=== PATIENT | female | born 2000 | race Caucasian/White ===

== ENCOUNTER 2023-01-14 12:08 | Emergency (ER) | payer MEDICAID, OTHER ==
[~2023-01-14] VITALS: Ht 170.2 cm; Wt 55.0 kg
[2023-01-14] MEDS ORDERED: TETANUS, DIPHTHERIA, PERTUSSIS VAC/PF 0.5ML (>10YR OLD) IM ONE (12:30)
[2023-01-14] MEDS ORDERED: LEVETIRACETAM 1000MG PREMIX 100 ML IV ONE (13:15)
[2023-01-14 13:29] LABS: BASOPHILS % 0.3 % (0.0-2.0); EOSINOPHILS % 0.4 % (0.0-5.0); HEMATOCRIT. 35.2 % (36.0-48.0); HEMOGLOBIN. 12.4 g/dL (12.0-16.0); LYMPHOCYTES % 12.4 % (20.0-50.0); MEAN CORPUSCULAR HEMOGLOBIN 33.5 pg (28.0-32.0); MEAN CORPUSCULAR VOLUME 95.5 fL (81.0-99.0); MEAN PLATELET VOLUME 10.1 fl (7.4-10.4); MONOCYTES % 6.3 % (2.0-8.0); NEUTROPHILS % 80.6 % (40.0-76.0); PLATELET 239 x1000/uL (130-400); RED BLOOD CELL COUNT 3.69 mill/uL (4.2-5.4); RED CELL DISTRIBUTION WIDTH 13.4 % (11.6-14.6)
[2023-01-14 13:40] LABS: CHLORIDE 108 mEq/L (98-107)
[2023-01-14 13:47] LABS: ETHANOL BLOOD < 10 mg/dL
[2023-01-14 13:49] LABS: HCG SCREEN POSITIVE
[2023-01-14 16:24] LABS: CLARITY URINE CLOUDY (CLEAR); COLOR URINE YELLOW (YELLOW); KETONES URINE TRACE (NEGATIVE); LEUKOCYTE ESTERASE URINE NEGATIVE (NEGATIVE); NITRITE URINE POSITIVE (NEGATIVE); OCCULT BLOOD URINE NEGATIVE (NEGATIVE); PROTEIN URINE TRACE (NEGATIVE); SPECIFIC GRAVITY URINE 1.017 (1.005-1.030); UROBILINOGEN URINE 0.2 E.U./dL (0.2-1.0)
[2023-01-14] MEDS ORDERED: CEPH500C2 MT (16:35)
[2023-01-14 16:44] LABS: *AMPHETAMINES SCREEN URINE NEGATIVE (NEGATIVE); *BARBITURATES SCREEN URINE NEGATIVE (NEGATIVE); *BENZODIAZEPINES SCREEN URINE NEGATIVE (NEGATIVE); CANNABINOID URINE SCREEN NEGATIVE (NEGATIVE); METHADONE URINE SCREEN NEGATIVE (NEGATIVE); OPIATES URINE SCREEN NEGATIVE (NEGATIVE); PHENCYCLIDINE URINE SCREEN NEGATIVE (NEGATIVE)
[2023-01-14 16:46] LABS: *COCAINE SCREEN URINE PRESUMTIVE POSITIVE (NEGATIVE)
[2023-01-14 18:37] VITALS: BP 124/80
== END 2023-01-14 18:38 | disposition home or self-care (01) ==
LOC: ER 12:39
DX: O9A.211 Injury, poisoning and certain other consequences of external causes complicating pregnancy, first trimester (principal); S01.01XA Laceration without foreign body of scalp, initial encounter; O23.41 Unspecified infection of urinary tract in pregnancy, first trimester; O99.341 Other mental disorders complicating pregnancy, first trimester; R56.9 Unspecified convulsions; O26.891 Other specified pregnancy related conditions, first trimester; Z3A.01 Less than 8 weeks gestation of pregnancy
CPT/HCPCS: 12002; 36415; 70450; 71045; 76801; 76817; 80053; 80305; 80320; 81003; 84702; 84703; 85025; 90471; 90715; 93005; 99285; Z7610; G0480

== ENCOUNTER 2023-01-16 13:05 | Emergency (ER) | payer OTHER ==
[~2023-01-16] VITALS: Ht 165.1 cm; Wt 52.0 kg
[~2023-01-16 13:05] MED LIST: CEPH500C2 MT
[2023-01-16 13:14] VITALS: BP 107/57
[2023-01-16] MEDS ORDERED: ACETAMINOPHEN 325MG TABLET PO STA (13:55)
[2023-01-16] MEDS ORDERED: ACET-2708 PO (17:38)
== END 2023-01-16 17:44 | disposition home or self-care (01) ==
LOC: ER 13:05
DX: O26.91 Pregnancy related conditions, unspecified, first trimester (principal); S01.01XA Laceration without foreign body of scalp, initial encounter; X58.XXXA Exposure to other specified factors, initial encounter; Y93.89 Activity, other specified; Y92.89 Other specified places as the place of occurrence of the external cause; Y99.8 Other external cause status; Z48.00 Encounter for change or removal of nonsurgical wound dressing; Z3A.01 Less than 8 weeks gestation of pregnancy
CPT/HCPCS: 36415; 84702; 99283

== ENCOUNTER 2023-01-29 18:26 | Emergency (ER) | payer OTHER ==
[~2023-01-29] VITALS: Ht 165.1 cm; Wt 54.0 kg
[~2023-01-29 18:26] MED LIST changes: +ACET-2708 PO
[2023-01-29 19:06] VITALS: BP 117/71
== END 2023-01-29 23:20 | disposition home or self-care (01) ==
LOC: ER 18:26
DX: S01.01XD Laceration without foreign body of scalp, subsequent encounter (principal); X58.XXXD Exposure to other specified factors, subsequent encounter
CPT/HCPCS: 99281; Z7610

== ENCOUNTER 2023-02-11 15:08 | Emergency (ER) | payer OTHER ==
[~2023-02-11] VITALS: Ht 165.1 cm; Wt 52.0 kg
[2023-02-11] MEDS ORDERED: PANTOPRAZOLE SODIUM 40 MG/VIAL IV ONE (16:00)
[2023-02-11] MEDS ORDERED: SODIUM CHLORIDE 0.9% 1,000 ML IV ONE (16:00)
[2023-02-11] MEDS ORDERED: VISCOUS LIDOCAINE 2% 15 ML UDC PO ONE (16:00)
[2023-02-11] MEDS ORDERED: METOCLOPRAMIDE HCL 10MG/2ML VIAL IV ONE (16:00)
[2023-02-11] MEDS ORDERED: MAGNESIUM/ALUMINUM HYDROXIDE/SIMETHICONE 30ML UDC PO ONE (16:00)
[2023-02-11] MEDS ORDERED: ACETAMINOPHEN 325MG TABLET PO PRN (16:00)
[2023-02-11 16:21] LABS: BASOPHILS % 0.1 % (0.0-2.0); HEMATOCRIT. 32.4 % (36.0-48.0); HEMOGLOBIN. 11.5 g/dL (12.0-16.0); LYMPHOCYTES % 8.8 % (20.0-50.0); MEAN CORPUSCULAR HEMOGLOBIN 33.4 pg (28.0-32.0); MEAN CORPUSCULAR VOLUME 94.6 fL (81.0-99.0); MEAN PLATELET VOLUME 10.2 fl (7.4-10.4); MONOCYTES % 11.7 % (2.0-8.0); NEUTROPHILS % 79.4 % (40.0-76.0); PLATELET 197 x1000/uL (130-400); RED BLOOD CELL COUNT 3.43 mill/uL (4.2-5.4); RED CELL DISTRIBUTION WIDTH 12.8 % (11.6-14.6)
[2023-02-11 16:26] LABS: *AMPHETAMINES SCREEN URINE NEGATIVE (NEGATIVE); *BARBITURATES SCREEN URINE NEGATIVE (NEGATIVE); *BENZODIAZEPINES SCREEN URINE NEGATIVE (NEGATIVE); CANNABINOID URINE SCREEN NEGATIVE (NEGATIVE); METHADONE URINE SCREEN NEGATIVE (NEGATIVE); OPIATES URINE SCREEN NEGATIVE (NEGATIVE); PHENCYCLIDINE URINE SCREEN NEGATIVE (NEGATIVE)
[2023-02-11 16:30] LABS: *COCAINE SCREEN URINE PRESUMTIVE POSITIVE (NEGATIVE)
[2023-02-11 16:39] LABS: CHLORIDE 100 mEq/L (98-107)
[2023-02-11 16:50] LABS: B-HCG QUANTITATIVE 119 mIU/mL (<3)
[2023-02-11] MEDS ORDERED: POTASSIUM CHLORIDE 20MEQ TABLET SR PO ONE (17:30)
[2023-02-11] MEDS ORDERED: FLUC100T MT (20:12)
[2023-02-11] MEDS ORDERED: TOPUD MT (20:12)
[2023-02-11] MEDS ORDERED: MAG-55 MT (20:12)
[2023-02-11] MEDS ORDERED: FAMO-135 MT (20:12)
[2023-02-11 21:25] VITALS: BP 123/78
== END 2023-02-11 21:36 | disposition home or self-care (01) ==
LOC: ER 15:08
DX: R51.9 Headache, unspecified (principal); J02.9 Acute pharyngitis, unspecified; R11.0 Nausea; F14.10 Cocaine abuse, uncomplicated
CPT/HCPCS: 36415; 76801; 76817; 80053; 80305; 81025; 84702; 85025; 86850; 86900; 86901; 96361; 96374; 96375; 99285; C9113; J2765; J7030; Z7610

== ENCOUNTER 2023-04-14 23:13 | Emergency (ER) | payer OTHER ==
[~2023-04-14] VITALS: Ht 167.6 cm; Wt 55.0 kg
[~2023-04-14 23:13] MED LIST changes: +FAMO-135 MT; +FLUC100T MT; +MAG-55 MT; +TOPUD MT
[2023-04-14 23:16] VITALS: TEMP 97.8; O2SAT 97
[2023-04-15 01:40] VITALS: BP 105/70; PULSE 64; RESP 18
== END 2023-04-15 01:45 | disposition home or self-care (01) ==
LOC: ER 23:29
DX: F10.129 Alcohol abuse with intoxication, unspecified (principal); Y90.0 Blood alcohol level of less than 20 mg/100 ml; F14.10 Cocaine abuse, uncomplicated; Z79.899 Other long term (current) drug therapy
CPT/HCPCS: 99283

== ENCOUNTER 2023-07-09 20:54 | Emergency (ER) | payer OTHER ==
[~2023-07-09] VITALS: Ht 165.1 cm; Wt 50.0 kg
[2023-07-09 21:04] VITALS: O2SAT 97
[2023-07-09 21:15] VITALS: TEMP 98.1
[2023-07-09] MEDS ORDERED: SODIUM CHLORIDE 0.9% 1,000 ML IV ONE (23:15)
[2023-07-09] MEDS ORDERED: LEVETIRACETAM 1000MG PREMIX 100 ML IV ONE (23:15)
[2023-07-09 23:43] LABS: BASOPHILS % 0.5 % (0.0-2.0); EOSINOPHILS % 0.8 % (0.0-5.0); HEMATOCRIT. 34.1 % (36.0-48.0); HEMOGLOBIN. 11.6 g/dL (12.0-16.0); LYMPHOCYTES % 15.4 % (20.0-50.0); MEAN CORPUSCULAR HEMOGLOBIN 30.1 pg (28.0-32.0); MEAN CORPUSCULAR HGB CONC 33.9 g/dL (31.0-37.0); MEAN CORPUSCULAR VOLUME 88.7 fL (81.0-99.0); MEAN PLATELET VOLUME 9.3 fl (7.4-10.4); MONOCYTES % 9.7 % (2.0-8.0); NEUTROPHILS % 73.6 % (40.0-76.0); PLATELET 292 x1000/uL (130-400); RED BLOOD CELL COUNT 3.84 mill/uL (4.2-5.4); RED CELL DISTRIBUTION WIDTH 13.8 % (11.6-14.6); WHITE BLOOD COUNT 10.4 x1000/uL (4.5-11.0)
[2023-07-09 23:49] LABS: CHLORIDE 107 mEq/L (98-107); INDEX HEMOLYSI 1 (1-3); INDEX ICTERIC 1 (1-4); INDEX LIPEMIC 1 (1-3); POTASSIUM 3.4 mEq/L (3.5-5.1); SODIUM 139 mEq/L (136-145)
[2023-07-09 23:57] LABS: ALANINE AMINOTRANSFERASE 15 IU/L (13-61); ALBUMIN 3.8 g/dL (3.4-5.0); ASPARTATE AMINOTRANSFERASE 12 IU/L (15-37); BILIRUBIN TOTAL 0.8 mg/dL (0.1-1.0); CALCIUM 9.1 mg/dL (8.5-10.1); CARBON DIOXIDE 27 mEq/L (21-32); CREATININE 0.5 mg/dL (0.6-1.3); GLUCOSE 95 mg/dL (70-105); PROTEIN TOTAL 7.6 g/dL (6.0-8.3); UREA NITROGEN BLOOD 7 mg/dL (7-21)
[2023-07-10 00:03] LABS: HCG SCREEN NEGATIVE
[2023-07-10] MEDS ORDERED: LEVE750T4 MT (02:05)
[2023-07-10 03:00] VITALS: BP 89/57; PULSE 55; RESP 11
== END 2023-07-10 03:03 | disposition home or self-care (01) ==
LOC: ER 20:54
DX: R56.9 Unspecified convulsions (principal); F14.90 Cocaine use, unspecified, uncomplicated
CPT/HCPCS: 99285; 96365; 80053; 84703; 85025; 36415; J1953; J7030